=== PATIENT | male | born 2005 | race Two or more races ===

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

== ENCOUNTER 2025-01-11 06:17 | Day surgery (SDC) | payer OTHER ==
[~2025-01-11] VITALS: Ht 177.8 cm; Wt 120.2 kg
[~2025-01-11 06:17] MED LIST: ACET1CAP14 PO
[2025-01-11] MEDS ORDERED: CELECOXIB 100 MG CAP ONE (06:45)
[2025-01-11] MEDS ORDERED: ceFAZolin 2 GM/D5W50ml 50 ML IV ONE (06:46)
[2025-01-11] MEDS ORDERED: ACETAMINOPHEN IV 100 ML IV ONE (06:46)
[2025-01-11] MEDS ORDERED: PREGABALIN CAPSULE 75 MG CAP ONE (06:46)
[2025-01-11] MEDS ORDERED: BUPIVACAINE 0.25% INJ 50ML VIAL ONE (06:48)
[2025-01-11] MEDS ORDERED: BUPIVACAINE HCL 50 ML ONE ×2 (06:48→07:17)
[2025-01-11] MEDS ORDERED: LIDOCAINE 2% (LOCAL ANESTH.) PF 5ml SDV ONE (06:56)
[2025-01-11] MEDS ORDERED: GLYCOPYRROLATE 0.2 MG/ML 1ML VIAL ONE (06:56)
[2025-01-11] MEDS ORDERED: DexAMETHasone SOD PHOS 10MG/1ML VIAL INJ ONE (06:56)
[2025-01-11] MEDS ORDERED: ONDANSETRON HCL 4 MG/2 ML VIAL ONE (06:56)
[2025-01-11] MEDS ORDERED: EPINEPHrine HCL 1 MG/1 ML AMP ONE (06:56)
[2025-01-11] MEDS ORDERED: KETOROLAC TROMETH 30 MG/ML 1ML VIAL ONE (06:56)
[2025-01-11] MEDS ORDERED: PROPOFOL 10 MG/ML 20 ML IV ONE ×2 (06:56→07:38)
[2025-01-11] MEDS: PREGABALIN CAPSULE 75 MG CAP PO ONE (07:28)
[2025-01-11] MEDS: ACETAMINOPHEN IV 1000 MG/100ML (10MG/ML) IV ONE (07:28)
[2025-01-11] MEDS: CELECOXIB 100 MG CAP PO ONE (07:28)
[2025-01-11] MEDS ORDERED: LIDOCAINE HCL 2% TOP JELLY 5ML TOP ONE (07:31)
[2025-01-11] MEDS ORDERED: ceFAZolin 1GM VL ONE (07:32)
[2025-01-11] MEDS ORDERED: KETAMINE 50mg/ML 1ml syringe ONE (07:32)
[2025-01-11] MEDS ORDERED: fentaNYL CITRATE 100 MCG/2 ML VL ONE (07:32)
[2025-01-11] MEDS ORDERED: PHENYLEPHRINE HCL 10 MG/ML VL ONE (07:55)
[2025-01-11] MEDS ORDERED: SODIUM CHLORIDE LOCK 10 ML ONE (07:55)
[2025-01-11] MEDS: BACITRACIN TOP OINT 1 UD PKG TOP ONE (09:08)
--- NOTE | 2025-01-11 09:41 | DVHOP2 ---
Operative Report - 2 Report Details Date: 01/11/25 Preop Diagnosis: Right knee anterior cruciate ligament tear with tibial eminence fracture, lateral meniscus tear Postop Diagnosis: Right knee anterior cruciate ligament tear with tibial eminence fracture, lateral meniscus anterior horn tear Surgeon: Nghia Chi MD Rn Provider Relations: BHARATI Vernon Anesthesiologist: Gino Salinas CRNA Anesthesia: General, Regional Implant: Arthrex quadriceps button x2, internal brace Consent: The patient and the family was informed of the risks and benefits of the proc edure. These include but are not limited to complications of anesthesia, postoperative infection, incomplete relief of symptoms, recurrence of symptoms, damage to blood vessels, nerves and tendons, deep venous thrombosis, pulmonary embolism and possible need for repeat surgery in the future. Complications: None Estimated Blood Loss: Less than 10 mL Indications for Surgery: The patient is a 19-year-old male who presented to the clinic with a history of knee injury. Clinical and radiological evaluation demonstrated tibial eminence fracture. Initially nonoperative management was recommended due to severe autistic condition. ACL tear was also noted with some laxity of the ligament. Brace was given. Therapy was initiated. However as per the parents, he continued to have significant instability and frequent falls. Given his very young age associated nonunion of the tibial eminence with significant laxity of the ACL, ACL reconstruction with a quadriceps autograft was recommended. Primary fixation of the tibial eminence was also considered, however because of the delay in fixation, this was considered a suboptimal treatment option. After thorough discussion with the parents, we decided to proceed with ACL reconstruction. Complications of the surgery such as neurovascular injury, infection, arthrofibrosis, loss of limb or life, graft failure was discussed with the family. Name of Procedure Performed Right knee arthroscopy with ACL reconstruction using quadriceps autograft, partial lateral meniscectomy, removal of loose body Procedure Details Procedure Details: The patient was identified in the preoperative holding area and the surgical sit e was marked. The consent was verified. The patient was brought into the operating room and placed supine on the operating table. General anesthesia was administered. A tourniquet was applied over the proximal thigh. All the bony prominences were appropriately padded. The knee was positioned appropriately. The extremity was now prepped and draped in the usual sterile manner. A timeout was called out to confirm the identity of the patient, the nature of surgery, the site of surgery, the availability of implants and x-rays and allergies to medications. The knee was examined under anesthesia and was found to have positive anterior drawer and Lacey test. Dial test was negative. Valgus and varus stress tests were negative. GRAFT HARVEST: An incision was made from the superior pole of the patella to approximately 6 cm. The skin and the subcutaneous tissue were dissected. The quadriceps tendon was identified. The sheath was incised. Next, the insertion at the patellar border was released with the help of sharp dissection. The edge of the quadriceps tendon was now whipstitched with a FiberWire. The graft harvester was now inserted and slowly advanced superiorly under visualization to harvest around 7 cm of the quadriceps tendon. This was a full thickness quadriceps tendon harvest. The diameter was approximately 11 mm. This was augmented with an internal brace. It was prepared on both sides with the help of sightseeing guide's guidelines and graft preparation technique. It was whipstitched at both ends and loaded onto the adjustable loop. KNEE ARTHROSCOPY: A standard anterolateral portal was established. A 30 scope was inserted. A standard anteromedial portal was established. A probe was inserted and the findings were as follows 1. Significant ACL laxity, off the femoral footprint, near 80% tear. Tibial eminence fracture nonunion also noted. 2. Intact medial meniscus 3. Grade 2 chondromalacia medial femoral condyle 4. Anterior horn of the lateral meniscus tear, overall stable, attached to the tibial eminence fracture piece 5. Intact PCL 6. Large tibial eminence fracture piece scarred down to the PCL and the intercondylar notch 7. Normal patellofemoral joint 8. Grade 2/3 chondromalacia lateral femoral condyle. NOTCHPLASTY AND FEMORAL TUNNEL PREPARATION: The ACL footprint was identified on the femoral side. This was debrided for better visualization. The rest of the ACL was removed with help of a shaver. A notchplasty was performed using a tunnel and approximately 5 mm of lateral wall was removed. Next an outside in jig was inserted. A small incision was made over the lateral distal femur. The skin and the subcutaneous tissue were dissected. The deep fascia was incised and then the iliotibial band was incised. The jig was inserted. Next a guidepin was inserted. Next a retroreamer was inserted on top of the guidepin. This was a 10.5 reamer based on the graft size. The femoral tunnel was drilled up to approximately 28 mm. Next, a loop was inserted through the femoral tunnel. TIBIAL TUNNEL PREPARATION: Next a tibial guide was inserted through the anteromedial portal. Next a guidewire was inserted through the jig. This was at the center of the ACL tibial footprint. A 11 reamer was used to drill the tunnel. Next the lasso loop was retrieved through the tibial tunnel. The graft was now brought into the operative field and the sutures were inserted into the loop and retrieved through the femoral side. The button was visualized entering into the tunnel with the scope in the anteromedial portal and it was flipped. This was confirmed by pulling on the tibial side and cycling the knee. Excellent fixation was noted. The adjustable loop was now pulled from the femoral side with some traction maintained on the tibial side so as to bring the graft within the knee and within the femoral tunnel. This was marked at 20 mm to confirm that adequate portion of the graft is inside the tunnel. Good graft isometry was noted by flexing and extending the knee. The tibial side was fixed with adjustable loop technique over a button. The internal brace was also used to augment the fixation by wrapping it around the button and tying it over the button. C-arm images were obtained throughout the procedure to confirm position of the implants. Irrigation was given. The quadriceps tendon was closed with nonabsorbable sutures, FiberWire tape. The deep tissue was closed with 2-0 Vicryl and the skin was closed with 3-0 Monocryl. Sterile dressing was applied including Steri-Strips and Xeroform. The knee was placed in a hinged range of motion brace set at -10 to 90 Disposition: Good, the patient was extubated and taken to the recovery without any complications. The patient was examined in the recovery and had intact neurovascular exam Plan: Weight-bear as tolerated, will need crutches for ambulation for the first 1 week. Brace range from 0 to 90 degrees. Follow-up in 1 to 2 weeks. Condition Good Disposition Home NGHIA CHI MD Jan 11, 2025 09:41
[2025-01-11 09:54] VITALS: TEMP 98.4
[2025-01-11] MEDS ORDERED: hydrALAZINE HCL 20 MG/ML VL IV PRN (10:15)
[2025-01-11] MEDS ORDERED: ONDANSETRON HCL 4 MG/2 ML VIAL IV PRN (10:15)
[2025-01-11] MEDS ORDERED: FLUMAZENIL 0.1 MG/ML INJ 10ML MDV IV PRN (10:15)
[2025-01-11] MEDS ORDERED: NALOXONE HCL 0.4 MG/ML VIAL IV PRN (10:15)
[2025-01-11] MEDS ORDERED: fentaNYL CITRATE 100 MCG/2 ML VL IV PRN (10:15)
[2025-01-11] MEDS ORDERED: ePHEDrine SULFATE 50 MG/ML AMP IV PRN (10:15)
[2025-01-11] MEDS ORDERED: oxyCODONE HCL 5MG TAB PO PRN (10:15)
[2025-01-11] MEDS: HYDROmorphone HCL 2 MG/ML VL/or syr IV PRN (10:20)
[2025-01-11 10:30] VITALS: BP 146/79; PULSE 107; RESP 16
[2025-01-11 10:33] VITALS: O2SAT 100
--- NOTE | 2025-01-11 19:56 | DVH ---
C-ARM FLUOROSCOPY: PROCEDURE: Right knee ACL reconstruction FLUOROSCOPY TIME: 4.7 sec DAP: 0.25 mgy FINDINGS: Spot intraoperative C arm radiographs demonstrating right knee ACL reconstruction. IMPRESSION: Please refer to surgical report for detailed findings.
--- NOTE | 2025-01-11 19:56 | DVH ---
C-ARM FLUOROSCOPY: PROCEDURE: Right knee ACL reconstruction FLUOROSCOPY TIME: 4.7 sec DAP: 0.25 mgy FINDINGS: Spot intraoperative C arm radiographs demonstrating right knee ACL reconstruction. IMPRESSION: Please refer to surgical report for detailed findings.
== END 2025-01-11 10:45 | disposition home or self-care (01) ==
LOC: SUR 06:17
PROVIDERS: ATTEND Orthopaedic Surgery Sports Medicine
DX: S83.511A Sprain of anterior cruciate ligament of right knee, initial encounter (principal); S83.281A Other tear of lateral meniscus, current injury, right knee, initial encounter; S82.111A Displaced fracture of right tibial spine, initial encounter for closed fracture; M23.8X1 Other internal derangements of right knee; M94.261 Chondromalacia, right knee; G89.18 Other acute postprocedural pain; F84.0 Autistic disorder; E66.01 Morbid (severe) obesity due to excess calories; Z68.38 Body mass index [BMI] 38.0-38.9, adult; Z79.899 Other long term (current) drug therapy; X58.XXXA Exposure to other specified factors, initial encounter; Y93.89 Activity, other specified; Y92.89 Other specified places as the place of occurrence of the external cause; Y99.8 Other external cause status
CPT/HCPCS: 29881; 29888; 64445; 64447; 73560; C1713; J0171; J0690; J1100; J1171; J1885; J2003; J2371; J2405; J2704; J3010; J3490; 76000; J0131